=== PATIENT | male | born 1975 | race African-American/Black ===

== ENCOUNTER 2019-11-23 19:49 | Observation (INO) | payer OTHER ==
[~2019-11-23] VITALS: Ht 177.8 cm; Wt 88.9 kg
[2019-11-23 20:57] LABS: BASO % 1 % (0-3); EOS % 1 % (0-3); HEMATOCRIT 42.9 % (39.0-53.0); HEMOGLOBIN 14.4 g/dL (13.0-17.5); LYMPH # 2.1 x10^3/uL (1.0-4.8); LYMPH % 40 % (24-48); MEAN CORPUSCULAR HEMOGLOBIN 30 pg (25-35); MEAN CORPUSCULAR HGB CONC 34 g/dL (31-37); MEAN CORPUSCULAR VOLUME 89 fL (79-100); MONO # 0.5 x10^3/uL (0.0-1.1); MONO % 9 % (0-9); NEUT # 2.6 x10^3uL (1.8-7.7); NEUT % 50 % (31-73); PLATELET COUNT 367 x10^3/uL (140-400); RED BLOOD COUNT 4.82 x10^6/uL (4.30-5.70); RED CELL DISTRIBUTION WIDTH 14.6 % (11.5-14.5); WHITE BLOOD COUNT 5.2 x10^3/uL (4.0-11.0)
[2019-11-23 20:58] LABS: CREATININE 1.2 mg/dL (0.7-1.3); GFR 80.3; POTASSIUM 3.9 mmol/L (3.5-5.1)
[2019-11-23 21:03] LABS: ALBUMIN/GLOBULIN RATIO 1.1 (1.0-1.7); TOTAL BILIRUBIN 0.2 mg/dL (0.2-1.0); TOTAL PROTEIN 7.8 g/dL (6.4-8.2)
[2019-11-23] MEDS ORDERED: NITROGLYCERIN SUBLINGUAL 0.4 MG BOTTLE OF 25. SL PRN (21:45)
[2019-11-23] MEDS ORDERED: ONDANSETRON PF 4 MG/2 ML VIAL. IVP PRN (21:45)
[2019-11-23] MEDS ORDERED: ACETAMINOPHEN 325 MG TABLET PO PRN (21:45)
--- NOTE | 2019-11-23 23:05 | NUR ---
Admission: The patient, LAKEISHA KRAUS, 44 y/o, M admitted by RONNA JANE MD, was given written information regarding hospital policies, unit procedures and contact persons. Pt arrived to room [address] [facility], accompanied by [facility] and nursing sup. Ambulatory from rney to bed, steady gait noted. Pt A/Ox4, pleasant. Pt admitted to observation status for chest pain r/o TN. Pt c/o palpitations intermittently since this AM. Pt reports he has had palpitations off and on since 2005, with two Holter monitor studies (in 2006 and 2010), which were inconclusive. Initial troponin mildly elevated at 0.070. Telemetry placed, showing sinus rhythm with HR in the 70's. PMH and home meds reviewed with pt. Oriented to room and discussed POC, V/U. Denies any c/o at this time. Sitting up, watching TV with call light in reach. Valuables were checked and logged. Left in room with patient.
[2019-11-23 23:15] VITALS: BP 147/72
[2019-11-23] MEDS: ASPIRIN CHEWABLE 81 MG TABLET. PO ONE (23:31)
[2019-11-23] MEDS ORDERED: ZOLP5TAB PO (23:37)
[2019-11-23] MEDS ORDERED: ATOR20TA58 PO (23:37)
[2019-11-23] MEDS ORDERED: IBUP800T19 PO (23:37)
--- NOTE | 2019-11-23 23:48 | EKG ---
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
[2019-11-24 06:04] VITALS: BP 107/69
--- NOTE | 2019-11-24 07:11 | NUR ---
Cardiology consult called to Dr. Castro. L/M with answering service, awaiting call back.
--- NOTE | 2019-11-24 09:42 | EKG ---
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
[2019-11-24 10:18] VITALS: BP 132/87
[2019-11-24 13:53] VITALS: BP 126/88
--- NOTE | 2019-11-24 15:32 | HP ---
ADMIT DATE: 11/23/2019 HISTORY OF PRESENT ILLNESS: The patient is a 44-year-old -Sammarinese male patient who came to the Emergency Room complaining of palpitations. According to the patient, the patient has episodes where his heart skips beat and according to him, this has been going on for years. He denied any actual chest pain, denied any shortness of breath. Denied any nausea or vomiting. Denied any diaphoresis, denied any radiation of pain. The episode lasts seconds. Apparently, he has this problem for years, when he was stationed in [place]; he was admitted and was monitored for 2 days without finding any other abnormality. He was also monitored for almost a week without detecting any abnormalities in his cardiac rhythm. He did have a stress test done before and was negative for ischemia. He was evaluated in the Emergency Room and apparently his EKG showed that he was in sinus rhythm and nonspecific ST-T changes with a heart rate of 76 and NV interval of 176 milliseconds and QRS duration of 106 milliseconds and corrected QT interval of 441. His first set of cardiac enzymes showed troponin to be less than 0.070 and therefore, the patient was admitted to do 2 more sets of cardiac enzyme, to continue monitoring him on tele bed and to consult the Cardiology and check his fasting lipid profile. PAST MEDICAL HISTORY: Significant for hyperlipidemia, for which he is on Lipitor. He has chronic back pain secondary to L5 disk protrusion. He has also torn ligaments in his right shoulder. PAST SURGICAL HISTORY: Significant for arthroscopic right knee surgery, varicose vein resection, bilateral testicular torsion, status post bilateral orchiopexy. He has also had LASIK surgery. ALLERGIES: He has no known drug allergies. MEDICATIONS: He is on atorvastatin 20 mg at bedtime. He is on Ambien 5 mg at bedtime as needed and ibuprofen 800 mg 3 times a day as needed for pain. FAMILY HISTORY: He has 1 brother and 1 sister older and both healthy. His father at the age of 53 because of myocardial infarction, congestive heart failure. His mother is still alive at age of 71 and he is known to have diabetes and hypertension. SOCIAL HISTORY: He is , has 1 daughter. He never smoked. He drinks alcohol about 2-3 times per week. He drinks wine or beer with dinner. Does not use any illicit drugs. 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 REVIEW OF SYSTEMS: The patient denied any blurring of vision, cataract, glaucoma or macular degeneration. Denied any earache, tinnitus or sensorineural deafness. Denied any nosebleeds, stuffy nose or postnasal drip. Denied any sore throat, sore tongue, toothache, hoarseness of voice, difficulty swallowing. Denied any nausea, vomiting, diarrhea or constipation. Denied any hematemesis, melena or hematochezia. Denied any dysuria, frequency or hematuria. He denied any chest pain, shortness of breath, orthopnea, paroxysmal nocturnal dyspnea. Denied any cough, phlegm or hemoptysis. Denied any chills, rigors or fever. PHYSICAL EXAMINATION: GENERAL: On arrival to the Emergency Room, he looked well and was clearly in no apparent respiratory distress. No pallor, jaundice, cyanosis or thyromegaly. No jugular venous distention. No limb edema. VITAL SIGNS: His heart rate was 80, blood pressure was 133/84, temperature was 98.8, respiratory rate was 18 and oxygen saturation was 98% on room air. HEAD, EYES, EARS, NOSE AND THROAT: Showed normocephalic, atraumatic. NECK: Supple. CARDIAC: Normal first and second heart sounds. No gallop or murmur. CHEST: Clear to auscultation. No crepitation or rhonchi. ABDOMEN: Distended, soft, nontender. NEUROLOGIC: He was awake, alert, responding appropriately. All cranial nerves intact. EXTREMITIES: He moves extremities without difficulty. LABORATORY DATA: His lab work showed a white cell count 5200, hemoglobin 14.4, his hematocrit was 42, MCV was 89 and platelet count 367,000 with normal manual differential. Serum sodium was 139, potassium 3.9, chloride 101, bicarbonate 29, anion gap of 9, BUN 9, creatinine 1.2, estimated GFR was 80 mL per minute. His glucose 148, calcium was 9. Total bilirubin, AST, ALT, alkaline phosphatase were normal. The first set of troponin was less than 0.070. His total protein was 7.8, albumin was 4. ASSESSMENT AND PLAN: This is a 44-year-old -Sammar[place] male patient who came with palpitation. He described a skipped beat, it happens and lasts only for few seconds, has been going on for years. He was admitted to rule out myocardial infarction and to be monitored and to consult the cardiology team. He has hyperlipidemia, has strong family history of premature coronary artery disease. His father at the age of 53 because of myocardial infarction complicated by congestive heart failure. We will obviously do 2 more sets of cardiac enzymes, check his fasting lipid profile and consult the word processing operator. BLANCO MCINTOSH MD DR: SATYA/noel JOB#: [id number] / [id number]
--- NOTE | 2019-11-24 16:23 | PDOC2 ---
CARDIAC CONSULT DATE OF CONSULT Date Of Consult DATE: 11/24/19 TIME: 16:14 REASON FOR CONSULT Reason for Consult Elevated troponin REFERRING PHYSICIAN Referring Physician Osman SOURCE Source: Patient HPI History of Present Illness 44 y.o male with pmhx as noted below presenting with palpitations. He was in his usual state of health and had worsening palpitations. He has had these for several years. He denies any associated syncope, chest pain, diaphoresis, or thopnea, PND or LE edema. No other acute issues. Trop was elevated with normal EKG, so admitted for further revaluation Prior remote stress testing WNL PAST MEDICAL HISTORY Past Medical History Dyslipidemia, Palpitations PAST SURGICAL HISTORY Past Surgical History None FAMILY HISTORY Family History +CAD in his father at age 53 SOCIAL HISTORY Social History No alcohol, tob or illicit drug use. CURRENT MEDICATIONS Current Medications Current Medications Ondansetron HCl (Zofran) 4 mg PRN Q4HRS PRN IVP NAUSEA/VOMITING; Start 11/23/19 at 21:45; Stop 11/24/19 at 21:44 Acetaminophen (Tylenol) 650 mg PRN Q4HRS PRN PO FEVER; Start 11/23/19 at 21:45; Stop 11/24/19 at 21:44 Nitroglycerin (Nitrostat) 0.4 mg PRN Q5MIN PRN SL CHEST PAIN; Start 11/23/19 at 21:45; Stop 11/24/19 at 21:44 Aspirin (Aspirin Chewable) 324 mg 1X ONCE PO Last administered on 11/23/19at 23:31; Start 11/23/19 at 22:00; Stop 11/23/19 at 22:01; Status DC Active Scripts Active Reported Ibuprofen 800 Mg Tablet 800 Mg PO PRN TID PRN Ambien (Zolpidem Tartrate) 5 Mg Tablet 5 Mg PO PRN QHS PRN Atorvastatin Calcium 20 Mg Tablet 20 Mg PO QHS ALLERGIES Allergies: Coded Allergies: No Known Allergies (Verified Allergy, Unknown, 11/23/19) ROS Review of Systems Negative for 05/31 systems reviewed unless otherwise noted above HPI PHYSICAL EXAM Physical Exam Constitutional: Well developed, well nourished, no acute distress, non-toxic appearance, positive interaction, playful. HENT: Normocephalic, atraumatic, bilateral external ears normal, oropharynx moist, no oral exudates, nose normal. Eyes: PERLL, EOMI, conjunctiva normal, no discharge. Neck: Normal range of motion, no tenderness, supple, no stridor. Cardiovascular: Normal heart rate, normal rhythm, no murmurs, no rubs, no gallops. Thorax and Lungs: Normal breath sounds, no respiratory distress, no wheezing, no chest tenderness, no retractions, no accessory muscle use. Abdomen: Bowel sounds normal, soft, no tenderness, no masses, no pulsatile masses. Skin: Warm, dry, no erythema, no rash. Back: No tenderness, no CVA tenderness. Extremeties: Intact distal pulses, no tenderness, no cyanosis, no clubbing, ROM intact, no edema. Musculoskeletal: Good ROM in all major joints, no tenderness to palpation or major deformities noted. Neurologic: Alert and oriented X 3, normal motor function, normal sensory function, no focal deficits noted. Psychologic: Affect normal, judgement normal, mood normal. VITALS Vital Signs Vital Signs Date Time Temp Pulse Resp B/P (MAP) Pulse Ox O2 Delivery O2 Flow Rate FiO2 11/24/19 13:53 98.2 77 20 126/88 (101) 97 Room Air LABS LABS Laboratory Tests Test 11/23/19 20:10 11/24/19 00:39 11/24/19 03:33 11/24/19 08:57 White Blood Count 5.2 x10^3/uL (4.0-11.0) Red Blood Count 4.82 x10^6/uL (4.30-5.70) Hemoglobin 14.4 g/dL (13.0-17.5) Hematocrit 42.9 % (39.0-53.0) Mean Corpuscular Volume 89 fL (79-100) Mean Corpuscular Hemoglobin 30 pg (25-35) Mean Corpuscular Hemoglobin Concent 34 g/dL (31-37) Red Cell Distribution Width 14.6 % (11.5-14.5) Platelet Count 367 x10^3/uL (140-400) Neutrophils (%) (Auto) 50 % (31-73) Lymphocytes (%) (Auto) 40 % (24-48) Monocytes (%) (Auto) 9 % (0-9) Eosinophils (%) (Auto) 1 % (0-3) Basophils (%) (Auto) 1 % (0-3) Neutrophils # (Auto) 2.6 x10^3uL (1.8-7.7) Lymphocytes # (Auto) 2.1 x10^3/uL (1.0-4.8) Monocytes # (Auto) 0.5 x10^3/uL (0.0-1.1) Eosinophils # (Auto) 0.0 x10^3/uL (0.0-0.7) Basophils # (Auto) 0.0 x10^3/uL (0.0-0.2) Sodium Level 139 mmol/L (136-145) Potassium Level 3.9 mmol/L (3.5-5.1) Chloride Level 101 mmol/L (98-107) Carbon Dioxide Level 29 mmol/L (21-32) Anion Gap 9 (6-14) Blood Urea Nitrogen 9 mg/dL (8-26) Creatinine 1.2 mg/dL (0.7-1.3) Estimated GFR (Cockcroft-Gault) 80.3 BUN/Creatinine Ratio 8 (6-20) Glucose Level 148 mg/dL (70-99) Calcium Level 9.0 mg/dL (8.5-10.1) Total Bilirubin 0.2 mg/dL (0.2-1.0) Aspartate Amino Transf (AST/SGOT) 27 U/L (15-37) Alanine Aminotransferase (ALT/SGPT) 49 U/L (16-63) Alkaline Phosphatase 64 U/L (46-116) Troponin I Quantitative 0.070 ng/mL (0-0.055) 0.075 ng/mL (0-0.055) 0.078 ng/mL (0-0.055) 0.074 ng/mL (0-0.055) Total Protein 7.8 g/dL (6.4-8.2) Albumin 4.0 g/dL (3.4-5.0) Albumin/Globulin Ratio 1.1 (1.0-1.7) Triglycerides Level 93 mg/dL (0-150) Cholesterol Level 209 mg/dL (0-200) LDL Cholesterol, Calculated 138 mg/dL (0-100) VLDL Cholesterol, Calculated 18 mg/dL (0-40) Non-HDL Cholesterol Calculated 156 mg/dL (0-129) HDL Cholesterol 53 mg/dL (40-60) Cholesterol/HDL Ratio 3.0 Thyroid Stimulating Hormone (TSH) 1.454 uIU/mL (0.358-3.740) IMAGES IMAGES CXR unremarkable EKG EKG No acute findings. ASSESSMENT/PLAN Assessment/Plan 1. Palpitation 2. Elevated Troponin 3. Dyslipidemia 4. Family history of early atherosclerotic disease Recommendations: 1. The pt has not had any further palpitations, etiology of elevated troponin is unclear. No evidence of other infectious issues. -I discussed various options for further assessment including expedited outpt echo and MPI and plans for a loop recorder. Patient was in agreement and will be discharged on asa 81mg daily, Metoprolol 12.5mg bid and continue home statin therapy We will arrange f/u through out office. Thanks ANGELA PETTIT MD Nov 24, 2019 16:23
[2019-11-24] MEDS ORDERED: METO25TA4 PO (17:50)
[2019-11-24] MEDS ORDERED: ASPI-630 PO (17:50)
--- NOTE | 2019-11-24 18:20 | DS ---
DATE OF DISCHARGE: HOSPITAL COURSE: The patient is a 44-year-old -[place] male patient, who was admitted with complaint of palpitation. He was evaluated in the Emergency Room. His EKG was unremarkable. He did have 3 sets of cardiac enzymes, shows slightly elevated troponin at 0.075; although, the patient himself denied any chest pain, shortness of breath, nausea, vomiting or diaphoresis. His fasting lipid profile showed serum triglycerides were 93, total cholesterol 209, LDL was 138, VLDL was 18, and HDL cholesterol was 53 and the ratio was 3 and his TSH was 1.454. He was seen in consultation by the Cardiology team, who recommended the patient can safely be discharged home to continue on aspirin 81 mg once a day as well as metoprolol 12.5 mg twice a day with a plan to arrange for an expedited outpatient echo on MPI and also a loop recorder. When I saw him this afternoon, he denied any further palpitation. While in the hospital, denied any chest pain or shortness of breath. PHYSICAL EXAMINATION: GENERAL: When I examined him, he looked well and was clearly in no apparent respiratory distress. No pallor, jaundice, cyanosis or thyromegaly. No jugular venous distension. No lower limb edema. VITAL SIGNS: His heart rate was 77, blood pressure was 126/88, temperature was 98.2, respiratory rate was 20, and oxygen saturation was 97%. The rest of clinical exam is stable. DISCHARGE MEDICATIONS: The patient was discharged home to continue on his Lipitor 20 mg at bedtime, zolpidem 5 mg as needed for insomnia, ibuprofen 800 mg 3 times a day as needed for pain. He is also discharged on aspirin 81 mg once a day and metoprolol tartrate 12.5 mg twice a day. FINAL DISCHARGE DIAGNOSES: 1. Palpitation. 2. Elevated troponin. 3. Dyslipidemia. 4. Family history of early atherosclerotic heart disease. BLANCO MCINTOSH MD DR: SATYA/noel JOB#: [id number] / [id number]
--- NOTE | 2019-11-24 18:42 | NUR ---
Discharge Note: LAKEISHA KRAUS Discharge instructions and discharge home medications reviewed with Patient and a copy given. All questions have been answered and understanding verbalized. The following instructions and handouts were given: Follow up with Primary Care Provider, take medications as prescribed. Discontinued lines and drains: Discontinued peripheral IV, pressure dressig applied, catheter tip intact. No apparant complications. Patient discharged to home.
--- NOTE | 2019-11-24 18:42 | NUR ---
Dr. Castro came to see pt. Pt is cleared to be discharged.
== END 2019-11-24 18:44 | disposition home or self-care (01) ==
LOC: ER 19:49 → 1 SOUTH 21:46 → LND 11-24 13:30
PROVIDERS: ADMIT Hospitalist; ATTEND Hospitalist
DX: R00.2 Palpitations (principal); E78.5 Hyperlipidemia, unspecified; M54.9 Dorsalgia, unspecified; G89.29 Other chronic pain; R79.89 Other specified abnormal findings of blood chemistry; Z79.82 Long term (current) use of aspirin; Z82.49 Family history of ischemic heart disease and other diseases of the circulatory system; Z83.3 Family history of diabetes mellitus; Z98.890 Other specified postprocedural states
CPT/HCPCS: 36415; 80053; 80061; 84443; 84484; 85025; 93005; G0378; G0379